=== PATIENT | male | born 2000 | race Caucasian/White ===

== ENCOUNTER 2024-02-26 16:42 | Emergency (ER) | payer SELFPAY ==
[2024-02-26 16:43] VITALS: BP 131/100; PULSE 132; RESP 16; TEMP 37.2; O2SAT 97; BMI 17.1
--- NOTE | 2024-02-26 16:52 | EKG12_ITS ---
Test Reason : PALPS Blood Pressure : / mmHG Vent. Rate : 124 BPM Atrial Rate : 124 BPM P-R Int : 128 ms QRS Dur : 082 ms QT Int : 302 ms P-R-T Axes : 070 089 047 degrees QTc Int : 433 ms Sinus tachycardia Otherwise normal ECG Confirmed by Ghulam Kern ([id number]), social media editor CAM CLARKE ([id number]) on 02/28/2024 2:06:50 PM Referred By: SHAHID Confirmed By:Ghulam Kern
--- NOTE | 2024-02-26 16:53 | EX.ED.DYSGE1 ---
HPI History of Present Illness Chief Complaint: Palpitations Detail of Chief Complaint: Palpitations and chest tightness Informant: patient Narrative Narrative: Patient presents to the emergency department with complaint of palpitations and chest tightness. Patient states that he has had the chest tightness for about a week and the palpitations since yesterday. What he means by palpitations it feels like his heart is pounding. Patient denies recent travel or surgery. He did have a recent break-up with his significant other about 2 and half months ago. He did have history of generalized anxiety but not currently taking any medications. Denies recent illness. No family history of WPW or other rhythm disturbances per patient and his mother who is with him. Patient denies recent travel or surgery. No history of PE or DVT. PFSH PFSH Home Medications ?Medication ?Instructions ?Recorded ?Last Taken ?Type lorazepam 1 mg tablet (Ativan) 1 mg PO TID PRN anxiety #10 tabs 02/26/24 Unknown Rx Allergy/AdvReac Type Severity Reaction Status Date / Time No Known Allergies Allergy Verified 02/26/24 16:43 Social History Smoking Status: Never smoker ROS ROS ED Review of Systems ROS Unobtainable: other Constitutional Constitutional ED: Reports lethargy; Denies chills, fever(s), sweats or weight loss Eyes Eyes: Denies blurry vision, change in vision or diplopia ENT ENT ED: Denies rhinorrhea or sore throat Cardiovascular Cardiovascular: Reports chest pain and racing heartbeat; Denies orthopnea Respiratory/Chest Respiratory/Chest: Denies cough, dyspnea, dyspnea on exertion, orthopnea or sputum Gastrointestinal Gastrointestinal: Denies abdominal pain, diarrhea, nausea or vomiting Genitourinary Genitourinary ED: Denies dysuria, hematuria or urinary frequency Musculoskeletal Musculoskeletal: Denies arthralgias, back pain, myalgias or neck pain Integumentary Denies abscess, Abrasions or rash Neurologic Neurologic: Denies headache(s) or weakness Psychiatric Psychiatric: Denies anxiety, depression or suicidal thoughts Endocrine Endocrinology: Denies polydipsia, polyphagia or polyuria Hematologic/Lymphatic Hematologic/Lymphatic: Denies easy bleeding, easy bruising or lymphadenopathy Allergic/Immunologic Allergic/Immunologic ED: Denies mouth swelling, tongue swelling or urticaria EXAM Physical Exam Const Vital Signs: 02/26/24 16:43 02/26/24 17:42 02/26/24 17:42 Temperature 98.9 F Temperature Source Temporal Pulse Rate 132 H 83 88 Respiratory Rate 16 17 16 Blood Pressure 131/100 H 108/71 114/51 L Blood Pressure Mean 110 83 72 Pulse Ox 97 98 97 Oxygen Delivery Method Room Air Room Air Room Air Positive well nourished and well developed General Appearance ED: well developed and NAD HEENT Reports TM's clear and moist mucous membranes normocephalic and atraumatic; Negative for trauma or tenderness Tympanic Membrane ED: Yes TM's clear Eyes PERRL and EOMs intact bilaterally General Eye ED: Negative for pale conjunctiva or scleral icterus Neck no lymphadenopathy, supple and no JVD General: Negative for tenderness Chest Wall inspection of chest normal and palpation of chest normal Chest: Negative for tenderness Resp normal respiratory effort and clear to auscultation bilaterally Effort and Inspection: Negative for respiratory distress or pain with movement Auscultation: Negative for rhonchi, wheezes or diminished lung sounds Cardio regular rhythm, S1 normal heart sound, S2 normal heart sound and no murmurs; Negative for regular rate Rate: tachycardic Peripheral Pulses: pulses 2+ throughout GI normal to inspection, nondistended, normoactive bowel sounds, soft to palpation, non-tender, non-distended and no masses Back/Spine no CVA tenderness and no thoracic nor lumbar tenderness Extremity normal to inspection General Extremety ED: Negative for edema General Extremity: Negative for edema Neuro oriented x3, CN's II-XII intact bilaterally, no sensory deficits noted and gait normal Sensorium / Orientation: awake, alert, oriented to person, oriented to place and oriented to time Motor Exam: strength 5/5 throughout and strength abnormal Psych mental status grossly normal Skin no rashes or lesions noted and no wounds MDM MDM MDM Narrative Medical decision making narrative: Patient presents with complaint of chest tightness and racing heart. In the differential would be anxiety versus dehydration or pericarditis or WPW. Suspicion for acute coronary syndrome low. Also in the differential would be PE although really no significant risk factors. EKG obtained arrival showed a sinus tachycardia with ventricular rate of 124 bpm with hyperacute T waves in leads V2, V3, and V4. CBC with differential, 7.7 with hemoglobin 16 and platelet count of 240. Chemistries unremarkable. Troponin was normal at 6. D-dimer was normal at 0.38. Patient received a milligram of Ativan IV. Heart rate improved into the 90s. Clinically looks well. Suspect possibly anxiety as the cause of his tachycardia. Recommended follow-up with his primary care physician within next 3 to 5 days. Will give a prescription for as needed Ativan. Advised to return if worsening chest pain, persistent tachycardia, syncope, or condition should worsen anyway Lab Data Attestation: I reviewed the patient's lab results. Labs: Laboratory Results - last 24 hr 02/26/24 17:14 WBC 7.7 RBC 5.64 Hgb 16.0 Hct 47.0 MCV 83.3 MCH 28.4 MCHC 34.0 RDW Std Deviation 37.1 RDW Coeff of Marisela 12.1 Plt Count 240 MPV 9.7 Immature Gran % (Auto) 0.300 Neut % (Auto) 71.5 H Lymph % (Auto) 22.5 [place] % (Auto) 5.3 Eos % (Auto) 0.1 Baso % (Auto) 0.3 Absolute Neuts (auto) 5.5 Absolute Lymphs (auto) 1.73 Nucleated RBC % 0 D-Dimer Quant (PE/DVT) 0.38 Sodium 138 Potassium 4.0 Chloride 105 Carbon Dioxide 23.0 Anion Gap 10 BUN 13 Creatinine 1.07 Estim Creat Clear Calc 84.73 Est GFR (MDRD) Af Amer 110 Est GFR (MDRD) Non-Af 91 BUN/Creatinine Ratio 12.1 Glucose 89 Calcium 9.5 Troponin I High Sens 6 EKG Initial EKG: Attestation: I personally reviewed and interpreted this EKG as follows: Comments: Sinus tachycardia with ventricular rate of 124 bpm Discharge Plan Triage Chief Complaint: Palpitations Other Complaint: Chest Pain ED Provider: Gurdeep Sheehan Dx/Rx/DC Orders Clinical Impression: Tachycardia, Anxiety Instructions: Understanding Tachycardia, ED Anxiety Reaction, ED Chest Pain, Uncertain Cause Prescriptions: New lorazepam [Ativan] 1 mg tablet 1 mg PO TID PRN (Reason: anxiety) Qty: 10 0RF Primary Care Provider: Care Physician,No Primary Referrals: Ted Cantu MD [Med Staff - [employer]] - 3-5 Days Liza Merchant MD [Non-Staff] - Print Language: Swedish Disposition Disposition: Home, Self Care
[2024-02-26] MEDS: 0.9% Normal Saline (1000mL) 1,000 ML 1000 ML IV (17:13)
[2024-02-26] MEDS: LORazepam 2 MG/ML Syringe 1 MG IV (17:17)
[2024-02-26 17:26] LABS: Absolute Lymphocyte Count 1.73 X10^3/uL (0.83-4.51); Absolute Neutrophil Count 5.5 X10^3/uL (2.0-7.7); Basophil# 0.02 X10^3/uL; Basophil% 0.3 % (0-1); Eosinophil# 0.01 X10^3/uL; Eosinophils% 0.1 % (0-5); Lymphocyte # 1.73 X10^3/ul (0.83-4.51); Lymphocyte % 22.5 % (19-41); Mean Corpuscular Hgb 28.4 pg (27.0-32.0); Mean Corpuscular Volume 83.3 fL (80-94); Mean Platelet Vol. 9.7 fl (6.2-12.0); Monocyte# 0.41 X10^3/uL; Monocyte% 5.3 % (0-10); NRBC Flagged by Analyzer 0 % (0-5); Neutrophil # 5.51 X10^3/uL (2.7-7.7); Neutrophil % 71.5 % (47-70); Platelet Count 240 K/mm3 (150-450); RBC Distribution Width CV 12.1 % (11.6-14.6); RBC Distribution Width SD 37.1 fl (35.1-43.9); Red Blood Count 5.64 M/mm3 (4.6-6.2); White Blood Count 7.7 K/mm3 (4.4-11.0)
[2024-02-26 17:38] LABS: D-Dimer Quantitative (DVT/PE) 0.38 FEU/ug/m (0.27-0.49)
[2024-02-26 17:42] VITALS: BP 108/71; BP 114/51; PULSE 83; PULSE 88; RESP 16; RESP 17; O2SAT 97; O2SAT 98
[2024-02-26 17:45] LABS: Anion Gap 10 (5-15); BUN 13 mg/dL (7-18); BUN/Creat Ratio 12.1 RATIO (10-20); Calcium,Total 9.5 mg/dL (8.5-10.1); Chloride 105 mmol/L (98-107); Creatinine, Serum 1.07 mg/dL (0.70-1.30); EST Glomerular Filtration Rate 91 mL/min (>60); Est Glom Filt Rate - Afr Amer 110 mL/min (>60); Estimated Creatinine Clearance 84.73 ml/min; Glucose 89 mg/dL (74-106); Sodium Level 138 mmol/L (136-145); Troponin-I HS 6 pg/mL (3.0-78.0)
[2024-02-26 18:22] VITALS: BP 111/68; PULSE 84; RESP 18; TEMP 36.6; O2SAT 98
== END 2024-02-26 18:24 | disposition home or self-care (01) ==
PROVIDERS: Emergency Provider Emergency Medicine; Visit Provider Emergency Medicine
DX: R07.89 Other chest pain (principal); R00.0 Tachycardia, unspecified; F41.9 Anxiety disorder, unspecified; Z79.899 Other long term (current) drug therapy
CPT/HCPCS: 80048; 84484; 85025; 85379; 93005; 96361; 96374; 99283; A4216